=== PATIENT | male | born 1960 | race Caucasian/White ===

== ENCOUNTER → 2018-07-28 | Outpatient (CLI) | payer OTHER ==
--- NOTE | 2018-07-28 11:13 | XCELERA REPORT ---
[address] [facility] [address] Lower Extremity Venous Evaluation Procedure: Color flow and duplex imaging bilaterally of the veins of the lower extremities as well as the Common Femoral veins. Right Sided Venous Evaluation Normal vessel filling wall to wall, compression and augmentation as well as Colour flow down to the infrageniculate veins. Left Sided Venous Evaluation Normal vessel filling wall to wall, compression and augmentation as well as Colour flow down to the infrageniculate veins. Interpretation Summary No duplex evidence of DVT or obstruction in the bilateral lower extremities. Name: KAIT KENNEDY Age: 57 yrs Gender: Male : [id number] Patient Status: Outpatient Patient Location: Study Date: 07/28/2018 09:09 AM Reason For Study: VENOUS INSUFFICIENCY Ordering Physician: KASH MAI Performed By: Sanya Kinsey : KASH MAI > Owen Houser
== END ==
LOC: SP 08:27
PROVIDERS: ATTEND Nurse Practitioner Adult Health
DX: I87.2 Venous insufficiency (chronic) (peripheral) (principal)
CPT/HCPCS: 93970